=== PATIENT | male | born 1980 | race Caucasian/White ===

== ENCOUNTER 2021-04-13 11:44 | Emergency (ER) | payer OTHER ==
[~2021-04-13] VITALS: Ht 182.9 cm; Wt 108.9 kg
[~2021-04-13 11:44] MED LIST: NOHOMEMEDICATIONS
[2021-04-13 11:48] VITALS: BP 157/100
[2021-04-13 12:13] LABS: ABSOLUTE NEUTROPHILS 5.8 thou/uL (1.4-8.2); BASOPHILS 0.8 % (0.0-2.0); EOSINOPHILS 3.8 % (0.0-3.0); HEMATOCRIT 47.2 % (42.0-52.0); HEMOGLOBIN 16.2 gm/dL (14.0-18.0); LYMPHOCYTES 28.7 % (24.0-44.0); MCH 31.1 pg (26.0-34.0); MCHC 34.2 g/dL (28.0-37.0); MCV 90.9 fL (80.0-100.0); MONOCYTES 7.9 % (1.0-8.0); PLATELET COUNT 246 thou/uL (150-400); POLYS 58.8 % (36.0-66.0); RDW 12.6 % (10.5-14.5); WBC 9.9 thou/uL (4.0-11.0)
[2021-04-13 12:27] LABS: CALCIUM 9.2 mg/dL (8.5-10.1); CREATININE 0.8 mg/dL (0.7-1.3); POTASSIUM 4.3 mmol/L (3.5-5.1)
[2021-04-13 12:37] LABS: ALBUMIN 4.2 g/dL (3.4-5.0); TOTAL BILIRUBIN 0.9 mg/dL (0.2-1.0); TOTAL PROTEIN 7.2 g/dL (6.4-8.2)
[2021-04-13] MEDS ORDERED: ADDERALL 10 MG10 MG PO (12:55)
[2021-04-13] MEDS ORDERED: PRAVACHOL 20 MG20 M1 PO (12:55)
[2021-04-13] MEDS ORDERED: CLONIDINE HCL0.3 M3 PO (12:55)
--- NOTE | 2021-04-14 11:15 | EKG ---
[address] [address] ELECTROCARDIOGRAM REPORT Name: PAOLA GONCALVES Room #: [facility]#: [id number] Admission: 04/13/21 Attend Phys: Discharge: 04/13/21 Date of : 80 Report #: [id number] [facility] ED Test Date: 2021-04-13 Test Time: 11:57:53 Pat Name: PAOLA GONCALVES Department: Room: Gender: Data Integration Architect: [place] [id number] : 1980 Requested By: Uche Coronado Order Number: [id number] MD: Thomas Cerrato Measurements Intervals [place] Rate: 66 P: 25 NM: 160 QRS: 30 QRSD: 98 T: 41 QT: 396 QTc: 415 Interpretive Statements Sinus rhythm No significant abnormality No previous ECG available for comparison Electronically Signed On 04-14-2021 11:15:40 [employer] by Thomas Cerrato [email or web address] <ELECTRONICALLY SIGNED> By: Thomas Cerrato MD, [facility] 04/14/21 1115 1157 [id number] Thomas Cerrato MD, FACC /EPI
== END 2021-04-13 14:15 | disposition home or self-care (01) ==
LOC: ER 11:44
PROVIDERS: Emergency Medicine
DX: R07.89 Other chest pain (principal); R42 Dizziness and giddiness; I10 Essential (primary) hypertension; E78.5 Hyperlipidemia, unspecified; Z79.899 Other long term (current) drug therapy